=== PATIENT | female | born 1980 | race Caucasian/White ===

== ENCOUNTER 2017-07-31 11:33 | Outpatient (CLI) | payer SELFPAY ==
[2017-07-31 13:36] VITALS: BP 108/66
--- NOTE | 2017-07-31 14:43 | Ultrasound Report ---
Limited OB ultrasound: Twin , well being. Baby A: Cephalic position with a heart rate of 135 beats per minute. Largest vertical amnionic pocket is 2.8 cm. Baby B: Cephalic position with heart rate 135 beats per minute. Estimated gestational age 37 weeks 3 days. BIOPHYSICAL PROFILE: 2 - breathing movements 2 - movements 2 - posture and tone 2 - Qualitative amniotic fluid volume 8 - TOTAL SCORE OF POSSIBLE 8 Heart Rate (bpm) 145
== END 2017-07-31 14:56 | disposition home or self-care (01) ==
LOC: TRG 11:33 → LD 11:33 → TRG 14:56
PROVIDERS: ATTEND Obstetrics & Gynecology
DX: O09.523 Supervision of elderly multigravida, third trimester (principal); O30.003 Twin pregnancy, unspecified number of placenta and unspecified number of amniotic sacs, third trimester; Z3A.37 37 weeks gestation of pregnancy
CPT/HCPCS: 59025; 76815; 76819

== ENCOUNTER 2017-08-03 14:55 | Outpatient (CLI) | payer SELFPAY ==
--- NOTE | 2017-08-03 16:59 | Ultrasound Report ---
Limited OB: Well-being. Twin A: Cephalic position with heart rate 152 beats per minute. Largest vertical amniotic pocket is 3 cm. Twin B: Cephalic position with a heart rate of 164 beats per minute. Largest vertical amniotic pocket is 3.3 cm. BIOPHYSICAL PROFILE: Twin A: 2 - breathing movements 2 - movements 2 - posture and tone 2 - Qualitative amniotic fluid volume 8 - TOTAL SCORE OF POSSIBLE 8 Heart Rate (bpm) 159 BIOPHYSICAL PROFILE: Twin B: 2 - breathing movements 2 - movements 2 - posture and tone 2 - Qualitative amniotic fluid volume 8 - TOTAL SCORE OF POSSIBLE 8 Heart Rate (bpm) 155
[2017-08-03 17:37] VITALS: BP 111/72
== END 2017-08-03 18:08 | disposition home or self-care (01) ==
LOC: TRG 14:55 → LD 14:56 → TRG 15:03 → LD 15:03 → TRG 18:08
PROVIDERS: ATTEND Obstetrics & Gynecology
DX: O09.523 Supervision of elderly multigravida, third trimester (principal); O30.003 Twin pregnancy, unspecified number of placenta and unspecified number of amniotic sacs, third trimester; Z3A.37 37 weeks gestation of pregnancy
CPT/HCPCS: 59025; 76815; 76819

== ENCOUNTER 2017-08-06 09:51 | Inpatient (IN) | payer SELFPAY ==
--- NOTE | 2017-08-06 11:48 | Ultrasound Report ---
FINAL REPORT EXAM: US OB BPP WO NON-STRESS HISTORY: twin gestation TECHNIQUE: Biophysical profile PRIORS: None currently available. FINDINGS: Twin gestation identified. Baby A: Breathin Gross Body Movements: 2 Tone: 2 Qualitative AFV: 2 Baby B: Breathin Gross Body Movements: 2 Tone: 2 Qualitative AFV: 2 IMPRESSION: Baby A: biophysical profile score 8/8. Baby B: biophysical profile score 8/8.
--- NOTE | 2017-08-06 11:48 | Ultrasound Report ---
FINAL REPORT EXAM: US OB BPP EA ADD EXAM HISTORY: twin gestation TECHNIQUE: Biophysical profile PRIORS: None currently available. FINDINGS: Twin gestation identified. Baby A: Breathin Gross Body Movements: 2 Tone: 2 Qualitative AFV: 2 Baby B: Breathin Gross Body Movements: 2 Tone: 2 Qualitative AFV: 2 IMPRESSION: Baby A: biophysical profile score 8/8. Baby B: biophysical profile score 8/8.
--- NOTE | 2017-08-06 11:50 | Ultrasound Report ---
FINAL REPORT EXAM: US OB LIMITED HISTORY: twin gestation, MISA TECHNIQUE: Transabdominal OB ultrasound. PRIORS: None currently available. FINDINGS: Twin gestation: Baby A: Presentation: Cephalic. heart rate: 145 BPM. Amniotic fluid index: Largest vertical pocket 2.7 cm. Baby B: Presentation: Cephalic. heart rate: 151 BPM. Amniotic fluid index: Largest vertical pocket 2.5 cm. IMPRESSION: Twin live intrauterine pregnancies.
[2017-08-06] MEDS ORDERED: MINERAL OIL PO PRN (12:00)
[2017-08-06] MEDS ORDERED: LACTATED RINGERS 1,000 ML IV SCH (12:00)
[2017-08-06] MEDS ORDERED: BRETHINE IVP PRN (12:00)
[2017-08-06] MEDS ORDERED: ePHEDrine SULFATE IV PRN (12:00)
[2017-08-06] MEDS ORDERED: BRETHINE SUB-Q PRN (12:00)
[2017-08-06] MEDS ORDERED: PITOCin/NS 30 UNIT/500ML 30 UNITS/500 ML BAG IV SCH (12:00)
[2017-08-06] MEDS ORDERED: STADOL IV PRN (12:00)
[2017-08-06] MEDS ORDERED: XYLOCAINE 2% INFILTRATI ONE (12:00)
[2017-08-06] MEDS ORDERED: NARCAN 0.4 MG/1 ML IV PRN (12:00)
--- NOTE | 2017-08-06 12:07 | History and Physical Report ---
History of Present Illness Date of examination: 08/06/17 Date of admission: 08/06/17 09:52 Chief complaint: Intense Labor Pains History of present illness: care at [facility], co-chance with [facility] due to Twin Gestation; BPP 8 /8 x2 today, VTx/VtX Past History Past Medical History: no pertinent history Past Surgical History: no surgical history Family/Genetic History: diabetes, hypertension Social history: no significant social history, - Obstetrical History Expected Date of Delivery: 08/18/17 Actual Gestation: 38 Week(s) 2 Day(s) : 5 Para: 3 Hx # Term Pregnancies: 3 Spontaneous Abortions: 1 Number of Living Children: 3 #1 Infant Gender: Male year: 1,997 Birthweight: 3.175 kg Method of Delivery: Vaginal Gestational age at delivery: 40 Complications: none #2 Gender: Female year: 2,002 Birthweight: 3.175 kg Method of Delivery: Vaginal Gestational age at delivery: 40 Complications: none #3 Infant Gender: Female year: 2,007 Birthweight: 3.175 kg Method of Delivery: Vaginal Gestational age at delivery: 40 Medications and Allergies Allergies Allergy/AdvReac Type Severity Reaction Status Date / Time No Known Allergies Allergy Verified 07/27/17 12:28 Home Medications Medication Instructions Recorded Confirmed Last Taken Type Vit-Fe Fumar-FA [ 1 tab PO QDAY 07/26/17 07/28/17 07/26/17 09: 00 History Vitamin] 1 Active Meds: Active Medications Butorphanol Tartrate (Stadol) 2 mg IV Q2H PRN PRN Reason: Pain , Severe (7-10) Ephedrine Sulfate (Ephedrine Sulfate) 10 mg IV Q2M PRN PRN Reason: Hypotension Lactated Ringer's (Lactated Ringers) 1,000 mls @ 125 mls/hr IV DIRECT DAYSI Oxytocin/Sodium Chloride (Pitocin/Ns 20 Unit/1000ml Drip) 20 units in 1,000 mls @ 125 mls/hr IV DIRECT DAYSI Oxytocin/Sodium Chloride (Pitocin/Ns 30 Unit/500ml) 30 units in 500 mls @ 2 mls /hr IV TITR DAYSI PRN Reason: Protocol Lidocaine (Xylocaine 2%) 20 ml INFILTRATI ONCE ONE Stop: 08/06/17 12:01 Mineral Oil (Mineral Oil) 30 ml PO QHS PRN PRN Reason: Constipation Naloxone HCl (Narcan 0.4 Mg/1 Ml) 0.1 mg IV Q2MIN PRN PRN Reason: Res Rate </= 8 or 02 SAT < 92% Terbutaline Sulfate (Brethine) 0.25 mg SUB-Q ONCE PRN PRN Reason: Hyperstimulation/Hypertonicity Terbutaline Sulfate (Brethine) 0.25 mg IVP ONCE PRN PRN Reason: Hyperstimulation/Hypertonicity Review of Systems All systems: negative - Vital Signs Vital signs: Vital Signs Pulse BP 79 115/69 08/06/17 10:09 08/06/17 10:09 Temp Pulse Resp BP Pulse Ox 79 115/69 08/06/17 10:09 08/06/17 10:09 - Physical Exam Breasts: Positive: normal Cardiovascular: Regular rate Lungs: Positive: Clear to auscultation, Normal air movement Abdomen: Positive: normal appearance, soft, normal bowel sounds Genitourinary (Female): Positive: normal external genitalia, normal perenium Uterus: Positive: enlarged - Obstetrical FHR: category 1 Uterine Contraction Monitor Mode: External Cervical Dilatation: 6 (moderate amount of clear fluid SROM at 1150) Cervical Effacement Percentage: 100 station: 0 Uterine Contraction Frequency (min): 1-3 Uterine Contraction Pattern: Irregular Uterine Tone Measurement Phase: Resting Uterine Contraction Intensity: Moderate Results All other labs normal. Assessment and Plan A: IUP @ 38 2/7 Weeks Category 1 Tracing x2 Twin Gestation GBS negative P: Admit to L&D per routine orders Consult Dr. Hurtado due to Twin Delivery Patient Education: Risk/Benefits Mother Consents to a Vaginal Delivery
[2017-08-06] MEDS: PITOCin/NS 20 UNIT/1000ML DRIP 20 UNITS/1,000 ML BAG IV SCH ×2 (13:05→17:29)
[2017-08-06 13:26] LABS: Hematocrit 41.6 % (30.3-42.9); Mean Corpuscular HGB Conc 34 % (30-34); Mean Corpuscular Hemoglobin 31 pg (28-32); Mean Corpuscular Volume 93 fl (79-97); Platelet Count 150 K/mm3 (140-440); Red Blood Count 4.46 M/mm3 (3.65-5.03); Red Cell Distribution Width 12.8 % (13.2-15.2); White Blood Count 11.1 K/mm3 (4.5-11.0)
[2017-08-06] MEDS ORDERED: CYTOTEC VG ONE (14:35)
[2017-08-06] MEDS ORDERED: CYTOTEC PR ONE (14:35)
[2017-08-06] MEDS ORDERED: MILK OF MAGNESIA PO PRN (14:53)
[2017-08-06] MEDS ORDERED: BENADRYL PO PRN (14:53)
[2017-08-06] MEDS ORDERED: TUCKS PAD TP PRN (14:53)
[2017-08-06] MEDS ORDERED: NORCO 5/325 PO PRN (14:53)
[2017-08-06] MEDS ORDERED: PHENERGAN PR PRN (14:53)
[2017-08-06] MEDS ORDERED: SODIUM CHLORIDE FLUSH SYRINGE 10 ML IV NR (15:00)
--- NOTE | 2017-08-06 15:07 | Procedure Note ---
OB Delivery Note - Vaginal Delivery presentation: vertex Delivery position: OA Delivery induction: none Delivery augmentation: rupture of membranes, pitocin Delivery monitor: external FHT, external uterine Route of delivery: Delivery placenta: spontaneous Delivery cord: 3 umbilical vessels Episiotomy: none Delivery laceration: none Anesthesia: none Delivery comments: of a live 7'15 female infant over a intact perineum without pain control with Apgars of 9 and 9 at 1348 on 08/06/2017. Infant directly to maternal abd/ chest, skin to skin contact. Cord double clamped. Dr. Hurtado in house and called to OR after delivery of Twin A. Spontaneous rupture of Fluids (clear) immediately after delivery of Twin A. Dr. Hurtado examined patient and began pushing with mother. Lisa Watt CNM resumed care of the mother; pushing continued. of a live 6'9 male infant over a intact perineum with Apgars of 8 and 9 at 1430 on 08/06/2017. Cord clamped and cut and placed of warmer. Spontaneous delivery of Placenta A and B at 1434. Fundus is firm and midline located 4 below the U. Lochia is scant. Cytotec 1000U placed rectally. Placenta to pathology. Mother and Babies in stable condition. - A at 1 minute: 9 at 5 minutes: 9 Gender: Female (7'15) B at 1 minute: 8 at 5 minutes: 9 Infant Gender: Male (6'9)
[2017-08-06] MEDS: MOTRIN PO SCH ×2 (16:12→21:44)
[2017-08-06] MEDS ORDERED: CYTOTEC ONE (17:18)
[2017-08-06] MEDS: METHERGINE PO SCH ×2 (18:34→21:44)
--- NOTE | 2017-08-06 20:14 | Ultrasound Report ---
FINAL REPORT EXAM: US PELVIC LIMITED HISTORY: deviated uterus s/p . Patient delivered twins this afternoon. Bleeding TECHNIQUE: Ultrasound of the pelvis using transabdominal imaging PRIORS: None. FINDINGS: Uterus: Uterus is markedly enlarged in size and heterogeneous in echogenicity. Along the left side of the uterine fundus, there is a rounded heterogeneous area in the myometrium, possibly an underlying fibroid. This is difficult to completely imaged due to the size of the uterus. Endometrial stripe: Abnormal in thickness measuring 25.6 mm. The echogenicity of the endometrium is heterogeneous. No internal blood flow in the endometrium is seen. Ovaries: Neither ovary is visualized due to the size of the uterus Other: There is no evidence for solid adnexal mass or free fluid in the cul-de-sac seen. IMPRESSION: 1. Enlarged uterus. 2. Endometrium is abnormally thickened and heterogeneous although has no internal blood flow. This could be due to hemorrhagic blood products in the endometrial canal 3. Rounded heterogeneous area in the left side of the uterus uterine fundus which may represent an underlying fibroid. This is difficult to completely image due to the size of the uterus.
[2017-08-07 05:16] LABS: Hematocrit 31.6 % (30.3-42.9); Hemoglobin 10.7 gm/dl (10.1-14.3)
[2017-08-07] MEDS: MOTRIN PO SCH ×3 (05:32→21:00)
[2017-08-07] MEDS: METHERGINE PO SCH ×2 (05:33→13:33)
[2017-08-07] MEDS ORDERED: PRENATAL VITAMIN PO SCH (10:00)
--- NOTE | 2017-08-07 14:15 | Progress Note ---
Assessment and Plan A: PPD 1- stable P: Continue current management D/C home in the AM 08/08/17 F/U in 6 weeks for PP exam Subjective - Subjective Date of service: 08/07/17 Principal diagnosis: Normal Spontaneous Vaginal Delivery Patient reports: appetite normal, voiding normally, pain well controlled, ambulating normally : doing well Objective - Vital Signs Latest vital signs: Vital Signs Temp Pulse Resp BP BP Pulse Ox 08/07/17 11:59 97.3 F L 84 20 149/49 08/07/17 07:46 98.0 F 71 20 119/46 08/07/17 04:20 98.6 F 98 H 18 126/63 08/07/17 00:00 98.0 F 100 H 18 113/57 08/06/17 20:00 98.2 F 85 18 124/68 08/06/17 17:26 111 H 91 08/06/17 17:24 80 128/58 08/06/17 17:22 106 H 99 08/06/17 17:17 90 99 08/06/17 17:14 105 H 91 08/06/17 17:12 100 H 95 08/06/17 17:09 87 134/58 08/06/17 17:07 95 H 96 08/06/17 17:02 116 H 95 08/06/17 16:57 100.0 F H 94 H 18 94 08/06/17 16:54 95 H 116/59 08/06/17 16:52 93 H 95 08/06/17 16:47 98 H 96 08/06/17 16:42 103 H 97 08/06/17 16:39 99 H 120/62 08/06/17 16:37 101 H 97 08/06/17 16:32 121 H 97 08/06/17 16:27 115 H 97 08/06/17 16:24 93 H 122/59 08/06/17 16:22 99 H 98 08/06/17 16:17 93 H 98 08/06/17 16:12 95 H 96 08/06/17 16:09 85 124/58 08/06/17 16:07 99 H 96 08/06/17 16:02 99 H 97 08/06/17 15:57 105 H 97 08/06/17 15:54 96 H 126/61 08/06/17 15:52 97 H 97 08/06/17 15:47 118 H 98 08/06/17 15:42 109 H 98 08/06/17 15:39 106 H 133/60 08/06/17 15:37 103 H 99 08/06/17 15:32 90 98 08/06/17 15:24 99 H 130/63 98 08/06/17 15:10 93 H 125/56 98 08/06/17 15:05 97.9 F 18 08/06/17 14:29 99 H 144/61 Intake and Output 08/06/17 08/07/17 08/07/17 23:59 07:59 15:59 Intake Total 550 240 240 Output Total 300 750 Balance 250 -510 240 Intake: IV 550 PITOCin/NS 20 UNIT/1000ML 550 DRIP 20 units In 1,000 ml @ 125 mls/hr IV DIRECT DAYSI Rx#:[id number] Oral 240 240 Output: Urine 300 750 Void 300 750 Other: Total, Intake Amount 240 240 Total, Output Amount 300 350 # Voids Void 1 1 - Exam Breasts: Present: deferred Cardiovascular: Present: Regular rate, Normal S1, Normal S2, No murmurs Lungs: Present: Clear to auscultation, Normal air movement Abdomen: Present: normal appearance, soft Vulva: both: normal Uterus: Present: normal, firm, fundal height above umbilicus (+2) Extremities: Present: edema (2+) Deep Tendon Reflex Grade: Normal +2
--- NOTE | 2017-08-07 14:45 | Discharge Summary ---
Providers - Providers Date of Admission: 08/06/17 09:52 Date of discharge: 08/08/17 Attending physician: IZZY AREVALO MD Primary care physician: IZZY AREVALO MD Hospitalization Reason for admission: active labor, IUP at term, other (twins gestation) Delivery: Episiotomy: none Laceration: none Other procedures: none complications: none Discharge diagnosis: IUP at term delivered [place] baby: twins (Twin A female; Twin B male) Hospital course: Uncomplicated Condition at discharge: Stable Disposition: DC-01 TO HOME OR SELFCARE Plan - Provider Discharge Summary Activity: routine, no sex for 6 weeks, no heavy lifting 4 weeks, no strenuous exercise Diet: routine Instructions: routine Additional instructions: [] Smoking cessation referral if applicable(refer to patient education folder for contact #) [] Refer to [facility]'s [facility] Booklet Call your doctor immediately for: * Fever > 100.5 * Heavy vaginal bleeding ( >1 pad per hour) * Severe persistent headache * Shortness of breath * Reddened, hot, painful area to leg or breast * Drainage or odor from incision. * Keep incision clean and dry at all times and follow doctor's instructions regarding bathing/showering - Follow up plan Follow up: IZZY AREVALO MD [Primary Care Provider] - 6 Weeks (PP exam)
[2017-08-08] MEDS: MOTRIN PO SCH (04:07)
[2017-08-08 09:06] VITALS: BP 106/43
== END 2017-08-08 14:14 | disposition home or self-care (01) | DRG 775 ==
LOC: TRG 09:51 → LD 09:52 → OB 17:57
PROVIDERS: ADMIT Obstetrics & Gynecology; ATTEND Obstetrics & Gynecology
PROC: 10E0XZZ Delivery of Products of Conception, External Approach (ICD-10-PCS; principal; 2017-08-06)
DX: O30.003 Twin pregnancy, unspecified number of placenta and unspecified number of amniotic sacs, third trimester (principal); Z3A.38 38 weeks gestation of pregnancy; Z37.2 Twins, both liveborn; Z83.3 Family history of diabetes mellitus; Z82.49 Family history of ischemic heart disease and other diseases of the circulatory system
CPT/HCPCS: 36415; 76815; 76819; 76857; 85014; 85018; 85027; 86592; 86850; 86900; 86901; 88307; 99211; G0463; J2590; J7120